=== PATIENT | female | born 1980 | race Caucasian/White ===

== ENCOUNTER 2019-03-28 09:47 | Outpatient (CLI) ==
[2015-06-08 20:16] VITALS: BMI 23.1
== END 2019-03-28 09:48 | disposition home or self-care (01) ==
LOC: RHC-LAB 09:47
PROVIDERS: ATTEND Nurse Practitioner Family
DX: R30.0 Dysuria (principal)
CPT/HCPCS: 81001; 87086; 87186

== ENCOUNTER 2019-04-02 15:00 | Emergency (ER) ==
[2019-04-02 15:04] VITALS: BP 137/82; TEMP 97.2; BMI 27.4
[2019-04-02 15:47] LABS: URINE PREGNANCY TEST NEGATIVE (NEGATIVE)
--- NOTE | 2019-04-02 17:08 | CT ---
EXAM: CT ABDOMEN AND PELVIS HISTORY: Pain, no additional history provided. TECHNIQUE: CT abdomen and pelvis without intravenous contrast. Images were reconstructed using 5 mm section thickness. Reformations were prepared. COMPARISON: 06/08/2015 FINDINGS: No focal hepatic or splenic lesions. Gallbladder is absent. Pancreas and adrenal glands are within normal limits. There is no hydronephrosis or evidence of ureteral obstruction. Abdominal aorta is w ithin normal limits. Stomach is unremarkable. Normal appendix and general bowel gas pattern. Uterus and urinary bladder are unremarkable. There is a 2.5 cm cystic mass in the right adnexa most consistent with the ovary l ikely containing follicles. If this represents a region of pain, pelvic ultrasound can be considered . There is no ascites or inflammatory infiltration of the abdominal fat. Ventral abdominal wall is intact without herniation. There is transitional vertebral body anatomy at the lumbosacral junction. There is a 4 mm nodule in the posterior right lung base which is stable a nd likely postinflammatory in nature. No pneumoperitoneum. IMPRESSION: There is a 2.5 cm cystic mass in the right adnexa most consistent with the ovary likely containing follicles. If this represents a region of pain, pelvic ultrasound can be considered. Oth erwise unremarkable or as stated above.
--- NOTE | 2019-04-02 17:17 | ED.PDOC ---
General ED Provider: Dr. VISHNU PARRA Chief Complaint: Nausea/Vomiting Stated Complaint: NAUSEAT , VOMITING Time Seen by Physician: 15:00 (NURSE PRESENT AT ALL TIMES ) Mode of Arrival: Walk-In Information Source: Patient Exam Limitations: No limitations Nursing and Triage Documentation Reviewed and Agree: Yes Does patient meet sepsis criteria?: No System Inflammatory Response Syndrome: Not Applicable Sepsis Protocol: For patient's 13 years and over: Temp is 96.8 and below OR 101 and greater Pulse >90 BPM Resp >20/minute Acutely Altered Mental Status Are patient's symptoms suggestive of a new infection, such as: -Pneumonia -Skin, Soft Tissue -Endocarditis -UTI -Bone, Joint Infection -Implantable Device -Acute Abdominal Infection -Wound Infection -Meningitis -Blood Stream Catheter Infection -Unknown GI Complaint Exam - Abdominal Pain Complaint/Exam Onset: Gradual Duration: 1WEEK Symptoms Are: Still present Timing: Intermittent Initial Severity: Mild Current Severity: Mild Location of Pain: Diffuse Character: Reports: Aching Aggravating: Reports: None Alleviating: Reports: None Associated Signs and Symptoms: Reports: Nausea, Vomiting, Diarrhea. Denies: Diaphoresis, Fever, Cough, Chest pain, Dizziness, Back pain, Constipation, Blood in stool, Dysuria, Urinary frequency, Decreased urine output, Decreased appetite, Vaginal bleeding, Vaginal discharge, Sore throat, Decreased activity Related History: Reports: Similar episode AAA Risk Factors: Reports: None Cardiac Risk Factors: Reports: None Ectopic Risk Factors: Reports: None Ovarian Torsion Risk Factors: Reports: None Surgical Obstruction Risk Factors: Reports: None Related Surgical History: Reports: None Patient Rh Status: Unknown Differential Diagnoses: Appendicitis, Bowel Obstruction, Constipation, Gastroenteritis, Hepatitis, Pancreatitis, Irritable Bowel Syndrome, Renal Colic , Ureteral Stone, GB, PUD Review of Systems - Review Of Systems Constitutional: Reports: No symptoms Eyes: Reports: No symptoms Ears, Nose, Mouth, Throat: Reports: No symptoms Respiratory: Reports: No symptoms Cardiac: Reports: No symptoms GI: Reports: Abdominal pain, Nausea, Poor appetite, Vomiting : Reports: No symptoms Musculoskeletal: Reports: No symptoms Skin: Reports: No symptoms Neurological: Reports: No symptoms Endocrine: Reports: No symptoms Hematologic/Lymphatic: Reports: No symptoms All Other Systems: Reviewed and Negative Past Medical History - Past Medical History Previously Healthy: Yes Endocrine: Reports: None Cardiovascular: Reports: None Respiratory: Reports: None Hematological: Reports: None Gastrointestinal: Reports: None Genitourinary: Reports: None Neuro/Psych: Reports: Anxiety, Depression, Bipolar Disorder Musculoskeletal: Reports: None Cancer: Reports: None Last Menstrual Period: yesterday - Surgical History General Surgical History: Reports: Unknown - Family History Family History: Reports: Unknown - Social History Smoking Status: Current every day smoker Hx Substance Use: Yes Alcohol Screening: None - Immunizations Tetanus Shot up to Date: Yes Physical Exam - Physical Exam Appearance: Well-appearing, No pain distress, Well-nourished Eyes: CALLUM, EOMI, Conjunctiva clear ENT: Ears normal, Nose normal, Oropharynx normal Respiratory: Airway patent, Breath sounds clear, Breath sounds equal, Respirations nonlabored Cardiovascular: RRR, Pulses normal, No rub, No murmur GI/: Soft, Nontender, No masses, Bowel sounds normal, No Organomegaly Musculoskeletal: Normal strength, ROM intact, No edema, No calf tenderness Skin: Warm, Dry, Normal color Neurological: Sensation intact, Motor intact, Reflexes intact, Cranial nerves intact, Alert, Oriented Psychiatric: Affect appropriate, Mood appropriate Interpretation - Radiology Interpretation Radiology Interpretation By: Radiologist Radiology Results: Positive (OVARIAN CYST V.S. MASS) Critical Care Note - Critical Care Note Total Time (mins): 0 Course - Course Hematology/Chemistry: 04/02/19 15:30 04/02/19 15:30 Orders, Labs, Meds: Lab Review 04/02/19 04/02/19 04/02/19 15:30 15:30 15:41 WBC 6.09 RBC 4.33 Hgb 14.0 Hct 40.5 MCV 93.5 MCH 32.3 H MCHC 34.6 RDW Coeff of Susana 13.2 Plt Count 223 Immature Gran % (Auto) 0.3 Neut % (Auto) 54.0 Lymph % (Auto) 35.5 [place] % (Auto) 7.4 Eos % (Auto) 2.1 Baso % (Auto) 0.7 Immature Gran # (Auto) 0.0 Neut # (Auto) 3.3 Lymph # (Auto) 2.2 [place] # (Auto) 0.5 Eos # (Auto) 0.1 Baso # (Auto) 0.0 Sodium 138.7 Potassium 3.67 Chloride 103.6 Carbon Dioxide 25.8 Anion Gap 12.97 BUN 6.7 L Creatinine 0.93 Estimated GFR (MDRD) 66.00 BUN/Creatinine Ratio 7.20 Glucose 95.5 Calcium 8.71 Total Bilirubin 0.45 AST 90.3 H ALT 74.4 H Alkaline Phosphatase 91.6 Total Protein 7.17 Albumin 4.01 Globulin 3.16 Albumin/Globulin Ratio 1.26 Urine Color Yellow Urine Clarity Clear Urine pH 7.0 Ur Specific [place] 1.015 Urine Protein Negative Urine Glucose (UA) Negative Urine Ketones Negative Urine Blood Trace-lysed Urine Nitrite Negative Urine Bilirubin Negative Urine Urobilinogen 0.2 Ur Leukocyte Esterase Negative Urine Microscopic RBC 0-2 Ur Squamous Epith Cells 0-2 Urine Test 04/02/19 15:41 WBC RBC Hgb Hct MCV MCH MCHC RDW Coeff of Susana Plt Count Immature Gran % (Auto) Neut % (Auto) Lymph % (Auto) [place] % (Auto) Eos % (Auto) Baso % (Auto) Immature Gran # (Auto) Neut # (Auto) Lymph # (Auto) [place] # (Auto) Eos # (Auto) Baso # (Auto) Sodium Potassium Chloride Carbon Dioxide Anion Gap BUN Creatinine Estimated GFR (MDRD) BUN/Creatinine Ratio Glucose Calcium Total Bilirubin AST ALT Alkaline Phosphatase Total Protein Albumin Globulin Albumin/Globulin Ratio Urine Color Urine Clarity Urine pH Ur Specific [place] Urine Protein Urine Glucose (UA) Urine Ketones Urine Blood Urine Nitrite Urine Bilirubin Urine Urobilinogen Ur Leukocyte Esterase Urine Microscopic RBC Ur Squamous Epith Cells Urine Test Negative Orders Category Date Time Status CBC W/ AUTO DIFF Stat LAB 04/02/19 15:30 Completed COMPREHENSIVE METABOLIC PANEL Stat LAB 04/02/19 15:30 Completed HEPATITIS PANEL, ACUTE Stat LAB 04/02/19 17:14 Ordered URINALYSIS C & S IF INDICATED Stat LAB 04/02/19 15:41 Completed URINE Stat LAB 04/02/19 15:[address] ABDOMEN/PELVIS WO CONTRAST Stat RADS 04/02/19 15:19 Completed Vital Signs: Temp Pulse Resp BP Pulse Ox 04/02/19 15:00 97.2 F L 92 H 20 137/82 99 Departure - Departure Time of Disposition: 17:17 Disposition: HOME SELF-CARE Discharge Problem: Vomiting, Nausea Abdominal pain Qualifiers: Abdominal location: unspecified location Qualified Code(s): R10.9 - Unspecified abdominal pain Instructions: Abdominal Pain (ED), Ovarian Cyst (ED) Condition: Good Pt referred to PMD for follow-up: Yes IPMP verified?: No Additional Instructions: Please call your Family Physician as soon as possible to schedule a follow-up appointment.YOUR OVARY HAS A CYSTIC MASS RIGHT SIDE HAVE YOUR MD TO DO AN ULTRASOUND Allergies/Adverse Reactions: Allergies erythromycin base [From Oneal-Tab] Adverse Reaction (Verified 06/08/15 20:25) Disposition Discussed With: Patient
== END 2019-04-02 17:43 | disposition home or self-care (01) ==
LOC: ED 15:00
DX: N83.201 Unspecified ovarian cyst, right side (principal); R10.9 Unspecified abdominal pain; R11.2 Nausea with vomiting, unspecified; F17.210 Nicotine dependence, cigarettes, uncomplicated
CPT/HCPCS: 36415; 80053; 80074; 81001; 81025; 85025; 99283